=== PATIENT | male | born 1970 | race Two or more races ===

== ENCOUNTER 2018-11-16 21:45 | Emergency (ER) | payer OTHER ==
[~2018-11-16] VITALS: Ht 162.6 cm; Wt 68.0 kg
== END 2018-11-16 23:01 | disposition home or self-care (01) ==
LOC: ER 21:45
DX: S40.011A Contusion of right shoulder, initial encounter (principal); W18.39XA Other fall on same level, initial encounter; Y93.89 Activity, other specified; Y92.59 Other trade areas as the place of occurrence of the external cause; Y99.8 Other external cause status